=== PATIENT | male | born 1995 | race Caucasian/White ===

== ENCOUNTER 2022-03-02 17:08 | Emergency (ER) | payer OTHER ==
[2022-03-02] MEDS ORDERED: Lidocaine 1% PF 5 ML VIAL ONE (19:03)
[2022-03-02] MEDS ORDERED: Bupivacaine 0.25% 10 ML VIAL ONE (19:05)
== END 2022-03-02 21:21 | disposition home or self-care (01) ==
LOC: ERS 17:08
DX: S60.551A Superficial foreign body of right hand, initial encounter (principal); W45.8XXA Other foreign body or object entering through skin, initial encounter
CPT/HCPCS: 10120; S0020